=== PATIENT | female | born 1950 | race African-American/Black ===

== ENCOUNTER 2018-02-15 00:07 | Emergency (ER) | payer OTHER, MEDICAID ==
[~2018-02-15] VITALS: Ht 167.6 cm; Wt 98.0 kg
[~2018-02-15 00:07] MED LIST: AMLO10TA PO; ATA25 PO; ATOR20TA PO; BACL10TA4 PO; BEN50 PO; CARI350T PO; DOCU-299 PO; DULO20EC PO; HYDR100T79 PO; IBUP-2213 PO; ISOS10TA9 PO; OMEP20TC12 PO; ORE25 PO; ZOLP10TA1 PO
[2018-02-15 00:15] VITALS: BP 151/90
[2018-02-15] MEDS: HYDROcodone/APAP 5/325 MG 1 TAB TAB PO ONE (00:38)
[2018-02-15] MEDS: KETOROLAC 30 MG/ML VIAL IM ONE (00:38)
[2018-02-15 01:24] VITALS: BP 170/84
== END 2018-02-15 01:24 | disposition home or self-care (01) ==
LOC: MED 00:07
DX: M54.5 Low back pain (principal); G89.29 Other chronic pain; M79.604 Pain in right leg; E11.9 Type 2 diabetes mellitus without complications; Z79.84 Long term (current) use of oral hypoglycemic drugs; Z79.899 Other long term (current) drug therapy
CPT/HCPCS: 96372; 99283; J1885